=== PATIENT | male | born 1955 | race Caucasian/White ===

== ENCOUNTER → 2019-05-01 10:12 | Outpatient (REF) | payer OTHER, SELFPAY | LOC: ANHLAB 10:12 | PROVIDERS: PCP Family Medicine; Visit Provider Nurse Practitioner | DX: D49.2 Neoplasm of unspecified behavior of bone, soft tissue, and skin (principal); C44.41 Basal cell carcinoma of skin of scalp and neck | CPT/HCPCS: 88305 ==

== ENCOUNTER → 2019-06-25 07:14 | Outpatient (REF) | payer OTHER, SELFPAY | LOC: ANHLAB 07:14 | PROVIDERS: PCP Family Medicine; Visit Provider Nurse Practitioner | DX: C44.41 Basal cell carcinoma of skin of scalp and neck (principal) | CPT/HCPCS: 88305; 88331 ==

== ENCOUNTER → 2020-12-19 04:14 | Outpatient (CLI) | payer MEDICARE, OTHER, SELFPAY ==
[2020-12-19 17:24] LABS: SARS-CoV-2 RNA PCR Negative
== END ==
PROVIDERS: PCP Family Medicine; Visit Provider Internal Medicine Gastroenterology
DX: Z01.812 Encounter for preprocedural laboratory examination (principal); Z20.822 Contact with and (suspected) exposure to COVID-19
CPT/HCPCS: C9803; U0003; U0005

== ENCOUNTER 2020-12-22 01:54 | Day surgery (SDC) | payer MEDICARE, OTHER, SELFPAY ==
--- NOTE | 2020-12-19 15:58 | PM.HPGS ---
History of Present Illness History of Present Illness Consent: Risks, benefits, and alternatives have been discussed and questions answered. Patient agrees to proceed with procedure. Chief complaint: hx of colon polyps Narrative: Gaudencio Guthrie is a 65 year old male Referred for colon cancer screening Review of Systems Review of Systems: All systems reviewed & are unremarkable except as noted in HPI and below PMFSH Past Medical History Medical History ADHD (attention deficit hyperactivity disorder), inattentive type BMI 31.0-31.9,adult BPH without obstruction/lower urinary tract symptoms CAD (coronary artery disease) (10/07/19) stenting of the 1st obtuse marginal and 2nd obtuse marginal Degenerative cervical spinal stenosis DM type 2 with diabetic peripheral neuropathy Encounter for prostate cancer screening Skin neoplasm Suspicious nevus Surgical History Surgical History Hx of cholecystectomy Family History Family History Mother Diabetes mellitus Family history of arthritis Grandparent Diabetes mellitus, Onset Age: 97 Family history of cardiovascular disease, Onset Age: 6 Family history of arthritis Father Acute myocardial infarction Social History Social History Smoking packs per day: 3 Smoking cigarettes per day: 60.0 Years smoked: 7 Smoking pack-years: 21.00 Smoking status: Former smoker Tobacco type: cigarettes Smoking end date: 02/15/76 Alcohol intake: never Substance use: never Substance use type: does not use Living arrangements: with family Spiritual care concerns: No Meds Home Medications and Allergies Home Medications Medication Instructions Recorded Confirmed Type sildenafil (pulm.hypertension) 20 See Rx Instructions PO ONCE PRN 04/03/19 12/10/20 History mg tablet tablet aspirin 325 mg tablet 325 mg PO DAILY 12/17/19 12/10/20 History clopidogrel 75 mg tablet 75 mg PO DAILY 12/17/19 12/10/20 History spironolactone 50 mg tablet 25 mg PO DAILY #90 tablet 03/06/20 12/10/20 Rx duloxetine 60 mg capsule,delayed 60 mg PO DAILY #30 cap 05/29/20 12/10/20 Rx release allopurinol 100 mg tablet 100 mg PO BID #180 tablet 07/07/20 12/10/20 Rx metformin 500 mg tablet,extended 1,000 mg PO BID #360 tablet 08/19/20 12/10/20 Rx release 24 hr empagliflozin 25 mg tablet 25 mg PO DAILY #30 tablet 10/21/20 12/10/20 Rx ezetimibe 10 mg tablet 10 mg PO DAILY #90 tablet 10/21/20 12/10/20 Rx lisinopril 40 mg tablet 40 mg PO DAILY #90 tablet 10/21/20 12/10/20 Rx tamsulosin 0.4 mg capsule 0.4 mg PO DAILY #90 cap 10/21/20 12/10/20 Rx amlodipine 2.5 mg PO DAILY 12/10/20 12/10/20 History ginkgo biloba 400 mg PO DAILY 12/10/20 12/10/20 History multivitamin 1 tablet PO DAILY 12/10/20 12/10/20 History Allergies Allergy/AdvReac Type Severity Reaction Status Date / Time Iodinated Contrast Media AdvReac Syncopy Verified 12/22/20 08:45 Exam Resp: Auscultation: clear to auscultation bilaterally Cardio: Rate: regular rate Rhythm: regular rhythm GI: GI Palp: Yes Soft to palpation and No Tenderness to palpation present (GI) Assessment and Plan Assessment and plan (1) Colon cancer screening: Code(s): Z12.11 - Encounter for screening for malignant neoplasm of colon Status: Acute Assessment and Plan: Colonoscopy with possible biopsy or polypectomy or cautery or injection of substances.
[2020-12-22 08:46] VITALS: BP 153/97; PULSE 86; RESP 20; TEMP 36.4; O2SAT 97; BMI 29.4
--- NOTE | 2020-12-22 08:56 | WPDANESEPPF ---
Anes - Initial Pre Proc Eval Procedure: Operation Date: 12/22/20 09:30 Proposed Procedures p Screening Colonoscopy - Nolberto Allen MD Date/Time: 12/22/20 08:56 Surgeon: Nolberto Allen MD Pre Op Diagnosis: hx of colon polyps Patient Data Age: 65 Gender: M Height: 1.78 m Weight: 93 kg Last Vital Signs Temp 36.4 C 12/22/20 08:46 Pulse 86 12/22/20 08:46 Resp 20 12/22/20 08:46 BP 153/97 H 12/22/20 08:46 Pulse Ox 97 12/22/20 08:46 Allergies Allergy/AdvReac Type Severity Reaction Status Date / Time Iodinated Contrast Media AdvReac Syncopy Verified 12/22/20 08:45 Home Medications Medication Instructions Recorded Confirmed Type sildenafil (pulm.hypertension) 20 See Rx Instructions PO ONCE PRN 04/03/19 12/10/20 History mg tablet tablet aspirin 325 mg tablet 325 mg PO DAILY 12/17/19 12/10/20 History clopidogrel 75 mg tablet 75 mg PO DAILY 12/17/19 12/10/20 History spironolactone 50 mg tablet 25 mg PO DAILY #90 tablet 03/06/20 12/10/20 Rx duloxetine 60 mg capsule,delayed 60 mg PO DAILY #30 cap 05/29/20 12/10/20 Rx release allopurinol 100 mg tablet 100 mg PO BID #180 tablet 07/07/20 12/10/20 Rx metformin 500 mg tablet,extended 1,000 mg PO BID #360 tablet 08/19/20 12/10/20 Rx release 24 hr empagliflozin 25 mg tablet 25 mg PO DAILY #30 tablet 10/21/20 12/10/20 Rx ezetimibe 10 mg tablet 10 mg PO DAILY #90 tablet 10/21/20 12/10/20 Rx lisinopril 40 mg tablet 40 mg PO DAILY #90 tablet 10/21/20 12/10/20 Rx tamsulosin 0.4 mg capsule 0.4 mg PO DAILY #90 cap 10/21/20 12/10/20 Rx amlodipine 2.5 mg PO DAILY 12/10/20 12/10/20 History ginkgo biloba 400 mg PO DAILY 12/10/20 12/10/20 History multivitamin 1 tablet PO DAILY 12/10/20 12/10/20 History Patient hx anesthesia problems: none Family hx anesthesia problems: none Results Review: All pre-operative results and documents have been reviewed as part of the pre-operative evaluation. [facility] Past Medical History Medical History ADHD (attention deficit hyperactivity disorder), inattentive type BMI 31.0-31.9,adult BPH without obstruction/lower urinary tract symptoms CAD (coronary artery disease) (10/07/19) stenting of the 1st obtuse marginal and 2nd obtuse marginal Degenerative cervical spinal stenosis DM type 2 with diabetic peripheral neuropathy Encounter for prostate cancer screening Skin neoplasm Suspicious nevus Surgical History Surgical History Hx of cholecystectomy Family History Family History Mother Diabetes mellitus Family history of arthritis Grandparent Diabetes mellitus, Onset Age: 97 Family history of cardiovascular disease, Onset Age: 6 Family history of arthritis Father Acute myocardial infarction Social History Social History Smoking packs per day: 3 Smoking cigarettes per day: 60.0 Years smoked: 7 Smoking pack-years: 21.00 Smoking status: Former smoker Tobacco type: cigarettes Smoking end date: 02/15/76 Alcohol intake: never Substance use: never Substance use type: does not use Living arrangements: with family Spiritual care concerns: No Anes - Eval Final PreProcedure Day of Procedure 12/22/20 08:56 Patient weight: overweight Heart: regular rate and rhythm Lungs: clear to auscultation Airway: Mallampati scale class II Neurological: alert and oriented Last oral intake: >/= 8 hours ASA classification: III Emergent: no Anesthetic plan: proceed Anesthesia type and monitoring: general GIVS and standard monitoring Results Review: All pre-operative results and documents have been reviewed as part of the pre-operative evaluation. Informed Consent: The patient's anesthetic plan and its attendant risks and benefits were discussed with the patient/family/POA. Questions were s
[2020-12-22] MEDS: LACTATED RINGERS 1,000 ML 150 ML IV CONT (09:07)
[2020-12-22 09:21] LABS: Glucose Point of Care 163 mg/dl (65-105)
[2020-12-22 10:00] VITALS: BP 112/57; PULSE 85; RESP 17; O2SAT 96
[2020-12-22 10:10] VITALS: BP 123/71; PULSE 74; RESP 16; O2SAT 100
[2020-12-22 10:20] VITALS: BP 116/76; PULSE 71; RESP 16; O2SAT 100
== END 2020-12-22 10:30 | disposition home or self-care (01) ==
PROVIDERS: PCP Family Medicine; Visit Provider Internal Medicine Gastroenterology
PROC: 0DJD8ZZ Inspection of Lower Intestinal Tract, Via Natural or Artificial Opening Endoscopic (ICD-10-PCS; CPT 45378; principal; 2020-12-22 09:30)
DX: Z12.11 Encounter for screening for malignant neoplasm of colon (principal); Z79.82 Long term (current) use of aspirin; Z79.84 Long term (current) use of oral hypoglycemic drugs; F90.9 Attention-deficit hyperactivity disorder, unspecified type; I25.10 Atherosclerotic heart disease of native coronary artery without angina pectoris; N40.1 Benign prostatic hyperplasia with lower urinary tract symptoms; E11.42 Type 2 diabetes mellitus with diabetic polyneuropathy; Z90.49 Acquired absence of other specified parts of digestive tract; Z87.891 Personal history of nicotine dependence
CPT/HCPCS: G0121; 82948; J2704; J7120

== ENCOUNTER → 2024-12-17 09:57 | Outpatient (CLI) | payer MEDICARE, OTHER, SELFPAY ==
--- NOTE | ~2024-12-17 | XR_ITS ---
EXAMINATION: XR foot RT min 3V, 12/17/2024 10:16 COLLECTIONS ANALYST HISTORY: M79.671 - Pain in right foot COMPARISON: No comparisons available. Findings: No acute fracture or malalignment. Moderate degenerative changes first metatarsal-phalangeal joint Soft tissues unremarkable. Impression: No acute fracture or malalignment. Reviewed, dictated and finalized at location P. ECTIONS ANALYST Impression: No acute fracture or malalignment.
--- NOTE | ~2024-12-17 | XR_ITS ---
EXAMINATION: XR ankle RT min 3V, 12/17/2024 10:22 SKOOG OPERATOR HISTORY: M25.571 - Pain in right ankle and joints of right foot COMPARISON: No comparisons available. Findings: No acute fracture or malalignment. No significant degenerative changes. Soft tissues unremarkable. Impression: No acute fracture or malalignment. Reviewed, dictated and finalized at location P. G OPERATOR Impression: No acute fracture or malalignment.
--- OUTSIDE RECORDS SUMMARY | 2024-12-17 10:53 | XMS_ITS | Clinical Summary ---
Author Organization [facility] Medical Office Building [address] Address [address] [place] [address] Care Team Providers Care Chief Information Security Officer Name Role Phone Lul Ramos MD Primary Care Provider [phone] Nii Og MD Unavailable Allergies Active Allergy Reactions Criticality Noted Date Comments Iodinated Contrast Media Other (See comments) Low 04/29/2017 Makes him pass out/ as a child Qbpuijn-Bzw-Qfo Reductase Inhibitors Dizziness High 11/28/2020 Room spins Medications allopurinol (ZYLOPRIM) 100 mg tabletIndication s:prevention of acute gout attack Take 2 tablets (200 mg total) by mouth every morning Active metFORMIN (GLUCOPHAGE) 500 mg tabletIndication s:type 2 diabetes mellitus Take 2 tablets (1,000 mg total) by mouth 2 (two) times a day with meals Active tamsulosin (FLOMAX) 0.4 mg extended release capsuleIndicatio ns:benign prostatic hyperplasia with lower urinary tract sx Take 1 capsule (0.4 mg total) by mouth nightly Active Jardiance 25 mg tabletIndication s:type 2 diabetes mellitus Take 1 tablet (25 mg total) by mouth every morning 4 Active spironolactone (ALDACTONE) 25 mg tablet Take 0.5 tablets (12.5 mg total) by mouth Tuesday 4 Active lisinopriL (PRINIVIL,ZESTRI L) 30 mg tabletIndication s:hypertension Take 1 tablet (30 mg total) by mouth every morning 4 Active Repatha SureClick 140 mg/mL pen injectorIndicati ons:hypercholest erolemia Inject 1 mL (140 mg total) under the skin every 2 (two) weeks 08/23/2023 last dose 1 Active pregabalin (LYRICA) 75 mg capsuleIndicatio ns:neuropathy Take 1 capsule (75 mg total) by mouth 3 (three) times a day Active acetaminophen (TYLENOL) 500 mg tablet Take 2 tablets (1,000 mg total) by mouth every 6 (six) hours as needed for pain Active aspirin 81 mg enteric coated tabletIndication s:Myocardial Reinfarction Prevention Take 1 tablet (81 mg total) by mouth daily Active erythromycin (ILOTYCIN) ophthalmic ointment Apply to eyelid incisions [address] Only [address] ointment in the eyes if they are irritated. 3.5 g 3 4 Active Additional Information Patient not taking.Reported on 11/16/2023 Active Problems Problem Noted Date Diagnosed Date Ptosis of both eyelids 07/28/2023 Dermatochalasis of both upper eyelids 07/28/2023 Memory loss 11/22/2017 Gait disturbance 11/22/2017 Surgical History Surgery Date Site/Laterality Comments GALLBLADDER SURGERY 02/14/2003 - 02/14/20 04 CATARACT EXTRACTION 02/14/2022 - 02/14/20 23 Bilateral CORONARY STENT PLACEMENT 02/15/2020 - 02/14/20 21 x2 ESOPHAGOGASTRODUODENOSCOPY 05/06/19 23 N/A; ESOPHAGOGASTRODUODENOSCOPY (EGD) DIAGNOSTIC ESOPHAGOSCOPY / EGD 07/09/19 23 LIFT / REPAIR BROW PTOSIS FOREHEAD 09/06/19 24 Bilateral Medical History Medical History Date Comments HTN (hypertension) Kidney disease DM (diabetes mellitus) Sepsis (HCC) Coronary artery disease Stroke (HCC) 04/2017 Had sepsis, body down to 20% and it did damage brain some (stroke like) Family History Medical History Relation Name Comments Diabetes Brother Hypertension Brother Cataracts Father Glaucoma Father Heart attack Father early 40s Hypertension Father Macular degeneration Father Cataracts Mother Diabetes Mother Hypertension Mother Macular degeneration Mother Stroke Mother in her 80s Thyroid disease Neg Hx Relation Name Status Comments Brother Father Mother Social History Tobacco Use Types Packs/Day Years Used Date Smoking Tobacco: Never Passive Smoke Exposure: Never Smokeless Tobacco: Never Tobacco Cessation:Counseling Given: No Personal Safety Answer Date Recorded Have you ever been in or are you currently in a harmful physical or emotional relationship or is someone making you feel afraid or unsafe? 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 Gender Identity Not on file Sexual Orientation Not on file Last Filed Vital Signs Vital Sign Reading Time Taken Comments Blood Pressure 123/74 09/06/2023 11:10 AM CDT Pulse 67 09/06/2023 11:10 AM CDT Temperature 36.3 C (97.3 F) 09/06/2023 10:40 AM CDT Respiratory Rate 15 09/06/2023 11:10 AM CDT Oxygen Saturation 93% 09/06/2023 11:10 AM CDT Inhaled Oxygen Concentration - - Weight 93 kg (205 lb) 08/25/2023 11:15 AM CDT Height 177.8 cm (5' 10) 08/25/2023 11:15 AM CDT Body Mass Index 29.41 08/25/2023 11:15 AM CDT Plan of Treatment Health Maintenance Due Date Last Done Comments Colon Cancer Screening-Colonoscopy 1955 Depression Screening 1955 Hepatitis C Screening 1955 Prostate Cancer Screening-PSA 1955 DTaP/Tdap/Td Vaccine (1 - Tdap) 10/03/1966 Hepatitis B Screening 10/03/1973 Pneumococcal vaccine 65+ (1 of 1 - PCV) 10/03/2005 Zoster Vaccine (1 of 2) 10/03/2005 Abdominal Aortic Aneurysm (AAA) Screen 10/03/2020 Well Visit 65+ 10/03/2020 Fall Risk Assessment 09/05/2024 09/06/2023 Influenza Vaccine (#1) 2024 Insurance [facility] CHOICE PLUS MEDICARE [facility] MEDICARE [facility] Care Teams Chief Information Security Officer Relationship Specialty Start Date End Date Lul Ramos MD [address] [address] PCP - General Family Medicine 10/21/17 [place] [id number] [address] Cardiovascular Disease 07/18/23
--- OUTSIDE RECORDS SUMMARY | 2024-12-17 10:53 | XMS_ITS | Clinical Summary ---
Author Organization [facility] Confide Address [address] [place] [address] Care Team Providers Care Health Care Assistant Name Role Phone Lul Ramos MD Primary Care Provider [phone] Source Comments [facility],non-owned Affiliates and Associated Physician Practices is amultiple site organization consisting of ambulatory clinics and hospital sitesin [place], [place], [place] and [place]. This disclosure is being madepursuant to the Care Everywhere program and may not contain all information available regarding this patient. Last updated 17.[facility] Conf[facility] Allergies Active Allergy Reactions Criticality Noted Date Comments Contrast-Iodinated Agents Fo r Ct/Other Other Low 04/29/2017 Makes him pass out Hmg-Coa-R Inhibitors Unknown High 11/28/2020 Medications * Be aware that medications may not be up to date on this document. Alwaysverify current medications with the patient. tamsulosin (FLOMAX) 0.4 MG capsule Take 1 (one) capsule by mouth at bedtime 05/17/19 18 Active torsemide (DEMADEX) 5 MG tabletIndicati ons:Edema Take 1 tablet by mouth once daily Reasons: Edema 30 tablet 4 06/30/19 18 Active Additional Information Patient not taking.Reported on 11/30/2024 allopurinol (Zyloprim) 100 MG tablet Take 1 (one) tablet by mouth once daily Active amLODIPine (Norvasc) 5 MG tablet Take 1 (one) tablet by mouth once daily Active vitamin D3 (Cholecalcifer ol) 10 MCG (400 UNIT) capsule Active Cyanocobalamin 1000 MCG Take 1 (one) tablet by mouth once daily Active evolocumab (Repatha SureClick) 140 MG/ML auto-injector Inject subcutaneously every 14 days 12/16/19 21 Active lisinopril (Prinivil; Zestril) 10 MG tablet Take 1 (one) tablet by mouth once daily 12/26/19 22 Active metFORMIN (Glucophage) 500 MG tablet Take 1 (one) tablet by mouth 2 times daily Active Multiple Vitamins-Lipscomb als (Cerovite Senior) TABS 1 (one) tablet Ac tive spironolactone (Aldactone) 25 MG tablet Take by mouth once daily 12/26/19 22 Active clopidogrel (plaVIX) 75 MG tablet Take 1 (one) tablet by mouth once daily Active aspirin (Aspirin) 325 MG tablet Take 1 (one) tablet by mouth once daily Active pregabalin (Lyrica) 75 MG capsule Take 1 (one) capsule by mouth 3 times daily Active Jardiance 25 MG tablet Take 1 (one) tablet by mouth every morning 06/20/19 24 Active terbinafine (LamISIL) 250 MG tablet 09/19/19 25 Active ciprofloxacin (Cipro) 500 MG tablet Take 1 (one) tablet by mouth once daily for 2 doses Take one tablet the evening before your biopsy and take one tablet the morning of your biopsy 2 tablet 11/30/19 25 025 Active Problems Problem Noted Date Diagnosed Date History of hypertension 05/04/2022 History of diabetes mellitus 05/04/2022 Gastrointestinal hemorrhage with melena 05/05/19 23 Arteriosclerosis of coronary artery 10/29/2019 Gout 10/29/2019 Hyperlipidemia 10/29/2019 Generalized edema 06/29/2017 Essential hypertension, benign 06/29/2017 Acute systolic heart failure 04/30/2017 Type 2 diabetes mellitus with hyperglycemia 04/14 Resolved Problems Problem Noted Date Diagnosed Date Resolved Date Acute kidney injury 06/29/2017 05/05/19 23 Acute renal failure with tubular necrosis 04/30/2017 05/05/2022 Acute respiratory failure with hypoxia 04/30/2017 05/05/2022 Acute liver failure 04/27/2017 05/06/19 23 Encounters Date Type Department Care Team Description 12/10/2024 Results Follow-Up [facility] - Urology [address] [place] [address] Rd [address] [place] [address] Eden Jones LPN 12/07/2024 Telephone [facility]rology [address] [place] [address] Rd [address] [place] [address] Juan Portillo MD Results 11/30/2024 1:00 PM CDT Procedure visit [facility] [address] [place] [address] Rd [address] [place] [id number] Juan Portillo MD PSA elevation 11/30/2024 Travel 11/29/2024 Orders Only [facility]rology [address] [place] [address] [address] [place] [address] Eden Jones LPN 10/23/2024 1:19 PM CDT - 10/23/2024 11:59 PM CDT Hospital Encounter [facility] [address] [place] [address] Juan Portillo MD Discharge Disposition: Home or Self Care 09/28/2024 9:00 AM CDT Office Visit [facility] - Urology [address] [place] [address] [address] [place] [phone] Juan Portillo MD PSA elevation (Primary Dx) 09/28/2024 Travel from Last 3 Months Family History Medical History Relation Name Comments CAD (Coronary Artery Disease) Mother Relation Name Status Comments Brother Alive Father Alive Mother Social History Tobacco Use Types Packs/Day Years Used Date Smoking Tobacco: Former Smokeless Tobacco: Never Tobacco Cessation:Counseling Given: Not Answered Alcohol Use Standard Drinks/Week Comments Never 0 (1 standard drink = 0.6 oz pur e alcohol) AUDIT-C Answer Date Recorded Q1: How often do you have a drink containing alc ohol? Never 05/04/2022 Average Number of Drinks Not on file 023 Frequency of Binge Drinking Not on file 04/15 PHQ-2 Answer Date Recorded Patient Health Questionnaire-2 Score 0 09/28/2024 Sex and Gender Information Value Date Recorded Sex Assigned at Not on file Legal Sex Male 3:23 PM CDT Gender Identity Not on file Sexual Orientation Not on file Last Filed Vital Signs Vital Sign Reading Time Taken Comments Blood Pressure 159/85 11/30/2024 1:20 PM CDT Pulse 70 11/30/2024 1:20 PM CDT Temperature 36.1 C (97 F) 11/30/2024 1:20 PM CDT Respiratory Rate 16 11/30/2024 1:20 PM CDT Oxygen Saturation 96% 11/30/2024 1:20 PM CDT Inhaled Oxygen Concentration - - Weight 90.7 kg (200 lb) 11/30/2024 1:20 PM CDT Height 177.8 cm (5' 10) 11/30/2024 1:20 PM CDT Body Mass Index 28.7 11/30/2024 1:20 PM CDT Plan of Treatment Upcoming Encounters Date Type Department Care Team (Late st Contact Info) Description 03/15/2025 8:45 AM REPAIRER KILN CAR Office Visit [facility] - Urology [address] [place] [address] [address] [place] [phone] Juan Portillo MD [address] [place] [address] Health Maintenance Due Date Last Done Comments COLOGUARD (AGES 45-75) - COLON CA SCREENING 1955 COLON MONITORING 1955 COLONOSCOPY - COLON CA SCREENING 1955 CT COLONOGRAPHY - COLON CA SCREENING 1955 Colorectal Cancer Screening 1955 FIT - COLON CA SCREENING 1955 FLEX SIG - COLON CA SCREENING 1955 MEDICARE AWV 12 MONTHS 1955 HEPATITIS C SCREENING 09/29/1973 DTAP/TDAP/TD VACCINES (1 - Tdap) 10/03/1974 PNEUMOCOCCAL VACCINE 50+ (1 of 2 - PCV) 10/03/1974 DIABETES-STATIN 1995 ZOSTER VACCINE (1 of 2) 10/03/2005 Respiratory Syncytial Virus (RSV) Vaccine Pt: or over 60 yrs (1 - Risk 60-74 years 1-dose series) 2015 AAA SCREENING 10/03/2020 DIABETES RETINOPATHY SCREENING 05/04/2022 DIABETES-FOOT EXAM WITH MONOFILAMENT 05/04/2022 DIABETES-HGB A1C 11/05/2022 05/05/2022, 04/28/2017 DIABETES-SERUM CREATININE 05/06/20232022, 05/04/2022, 09/28/2017, Additional history exists DIABETES - URINE PROTEIN SCREENING 02/15/2024 COVID-19 VACCINE ( season) 2024 INFLUENZA VACCINE (#1) 2024 DEPRESSION SCREENING Completed 09/28/2024 HEPATITIS B VACCINE Aged Out No longe r eligible based on patient's age to complete this topic HIB VACCINE Aged Out No longer eligi ble based on patient's age to complete this topic HPV VACCINE Aged Out No longer eligi ble based on patient's age to complete this topic MENINGOCOCCAL (Group B) VACCINE SHARED DECISION-MAKING Aged Out No longer eligible based on patient's age to complete this topic MENINGOCOCCAL GROUPS A/C/Y/W VACCINE Aged Out No longer eligible based on patient's age to complete this topic Procedures Procedure Name Priority Date/Time Associated Diagnosis Comments PATHOLOGY TISSUE Routine 11/30/2024 2:10 PM CDT PSA elevation MRI PROSTATE W 3D WWO CONTRAST Routine 10/23/2024 3:13 PM CDT PSA elevation URINALYSIS AUTO - POINT OF CARE (AMB) [facility] Routine 09/28/2024 9:09 AM CDT PSA elevation COMPREHENSIVE METABOLIC PANEL Routine 05/05/2022 2:00 AM CDT Gastrointestinal hemorrhage with melena HEMOGLOBIN A1C Routine 05/05/2022 2:00 AM CDT History of diabetes mellitus from Last 3 Months or Most Recently Relevant to Health Maintenance Results * PATHOLOGY TISSUE (11/30/2024 2:10 PM CDT) Case Report Surgical Pathology Report Case: [id number] Authorizing Provider: Juan Portillo MD Collected: 11/30/2024 02:10 PM Ordering Location: [facility] - Received: 12/03/2024 08:56 AM Urology Pathologist: Norma Eric MD Specimens: A) - Prostate, Left Lateral [place], Biopsy, LLA B) - Prostate, Left Lateral Mid, Biopsy, LLM C) - Prostate, Left Lateral Base, Biopsy, LLB D) - Prostate, Left Mid [place], Biopsy, LMA E) - Prostate, Left Mid Mid, Biopsy, LMM F) - Prostate, Left Mid Base, Biopsy, LMB G) - Prostate, Right Mid [place], Biopsy, RMA H) - Prostate, Right Mid Mid, Biopsy, RMM I) - Prostate, Right Mid Base, Biopsy, RMB J) - Prostate, Right Lateral [place], Biopsy, RLA K) - Prostate, Right Lateral Mid, Biopsy, RLM L) - Prostate, Right Lateral Base, Biopsy, RLB M) - Prostate Biopsy, ADAM 12/05/2024 7:21 PM CDT [facility] Final Diagnosis Prostate, left lateral apex, biopsy (A): - Benign glands and stroma Prostate, left lateral mid, biopsy (B): - Atypical acinar proliferation Prostate, left lateral base, biopsy (C): - Benign glands and stroma Prostate, left mid apex, biopsy (D): - Benign glands and stroma Prostate, left mid mid, biopsy (E): - Benign glands and stroma Prostate, left mid base, biopsy (F): - Benign glands and stroma Prostate, right mid apex, biopsy (G): - Benign glands and stroma Prostate, right mid mid, biopsy (H): - Benign glands and stroma Prostate, right mid base, biopsy (I): - Benign glands and stroma Prostate, right lateral apex, biopsy (J): - Benign glands and stroma Prostate, right lateral mid, biopsy (K): - Benign glands and stroma Prostate, right lateral base, biopsy (L): - Benign glands and stroma Prostate, ADAM, biopsy (M): - Prostate adenocarcinoma, grade group 3 (Emily score 3+3) involving approximately 70% of biopsy tissue Comment: The tiny focus of atypical glands in specimen B is present in level 1 but not present in level 2 12/05/2024 7:21 PM CDT [facility] at 1921 CDT Microscopic Description and Comment Microscopic examination is performed and substantiates the above diagnosis. Immunostain for p63 performed on specimen B fails to confirm the presence of carcinoma. 12/05/2024 7:[address] [facility] Clinical History 68 year old male w/ elevated PSA. Mild elevation for several years, recent peak PSA of 10.2 in 08/2024. Has associated BPH, on tamsulosin, which he started after a sepsis episode many years prior (negative urine culture but was suspected urinary source), but he has no urinary symptoms at present. Denies family history of prostate cancer. 12/05/2024 7:21 PM [facility] Gross Description The requisition and specimen(s) are identified with the patient's name Gaudencio Guthrie. Received in formalin, specimen A, left lateral apex, consists of a 1.3 cm length x 0.1 cm diameter faye-white cylindrical core biopsy, submitted in toto in cassette A1. Received in formalin, specimen B, 'left lateral mid' consists of a 1.3 cm length x 0.1 cm diameter faye-white cylindrical core biopsy, submitted in toto in cassette B1. Received in formalin, specimen C, 'left lateral base' consists of a 1.1 cm length x 0.1 cm diameter faye-white cylindrical core biopsy, submitted in toto in cassette C1. Received in formalin, specimen D, 'left mid apex' consists of a 1.3 cm length x 0.1 cm diameter faye-white cylindrical core biopsy, submitted in toto in cassette B1. Received in formalin, specimen E, 'left mid mid' consists of a 1.2 cm length x 0.1 cm diameter faye-white cylindrical core biopsy, submitted in toto in cassette E1. Received in formalin, specimen F, 'left mid base' consists of a 1.4 cm length x 0.1 cm diameter faye-white cylindrical core biopsy, submitted in toto in cassette F1. Received in formalin, specimen G, 'right mid apex' consists of a 0.6 cm length x 0.1 cm diameter faye-white cylindrical core biopsy, submitted in toto in cassette G1. Received in formalin, specimen H, 'right mid mid' consists of a 1.0 cm length x 0.1 cm diameter faye-white cylindrical core biopsy, submitted in toto in cassette H1. Received in formalin, specimen I, 'right mid base' consists of a 2.0 cm length x 0.1 cm diameter faye-white cylindrical core biopsy, submitted in toto in cassette I1. Received in formalin, specimen J, 'right lateral apex' consists of a 1.1 cm length x 0.1 cm diameter faye-white cylindrical core biopsy, submitted in toto in cassette J1. Received in formalin, specimen K, 'right lateral mid' consists of a 1.3 cm length x 0.1 cm diameter faye-white cylindrical core biopsy, submitted in toto in cassette K1. Received in formalin, specimen L, 'right lateral base' consists of a 0.8 cm length x 0.1 cm diameter faye-white cylindrical core biopsy, submitted in toto in cassette L1. Received in formalin, specimen M, 'ADAM' consists of two faye-white cylindrical core biopsies averaging 1.1 cm in length x 0.1 cm in diameter, submitted in toto in cassette M1. 12/05/2024 7:21 PM CDT [facility] Pathologist Location at [facility] 12/05/2024 7:21 PM T [facility] Disclaimer The performance characteristics of all immunohistochemical and indirect immunofluorescence stains (if any) cited in this report were determined by the [facility] of [facility]. Some of these tests were developed by our own laboratory and have not been cleared or approved by the US Food and Drug Administration. The FDA does not require this test to go through premarket FDA review. These tests are used for clinical purposes. They should not be regarded as investigational or for research. This laboratory is certified under the Clinical Laboratory Improvement Amendments (CLIA) as qualified to perform high complexity clinical laboratory testing. This case has been personally reviewed and interpreted by the attending (teaching) pathologist. 12/05/2024 7:21 PM CDT [facility] Embedded Images 12/05/2024 7:21 PM CDT [facility] Pathology/Cytology BIOPSY OF PROSTATE / Unknown 11/30/2024 2:10 PM CDT 12/03/2024 8:56 AM CDT Miscellaneous samples (specimen) (Prostate, Left Lateral Mid, Biopsy) 11/30/2024 2:10 PM CDT 12/03/2024 8:56 AM CDT Miscellaneous samples (specimen) (Prostate, Left Lateral Base, Biopsy) 11/30/2024 2:10 PM CDT 12/03/2024 8:56 AM CDT Miscellaneous samples (specimen) (Prostate, Left Mid [place], Biopsy) 11/30/2024 2:10 PM CDT 12/03/2024 8:56 AM CDT Miscellaneous samples (specimen) (Prostate, Left Mid Mid, Biopsy) 11/30/2024 2:10 PM CDT 12/03/2024 8:56 AM CDT Miscellaneous samples (specimen) (Prostate, Left Mid Base, Biopsy) 11/30/2024 2:10 PM CDT 12/03/2024 8:56 AM CDT Miscellaneous samples (specimen) (Prostate, Right Mid [place], Biopsy) 11/30/2024 2:10 PM CDT 12/03/2024 8:56 AM CDT Miscellaneous samples (specimen) (Prostate, Right Mid Mid, Biopsy) 11/30/2024 2:10 PM CDT 12/03/2024 8:56 AM CDT Miscellaneous samples (specimen) (Prostate, Right Mid Base, Biopsy) 11/30/2024 2:10 PM CDT 12/03/2024 8:56 AM CDT Miscellaneous samples (specimen) (Prostate, Right Lateral [place], Biopsy) 11/30/2024 2:10 PM CDT 12/03/2024 8:56 AM CDT Miscellaneous samples (specimen) (Prostate, Right Lateral Mid, Biopsy) 11/30/2024 2:10 PM CDT 12/03/2024 8:56 AM CDT Miscellaneous samples (specimen) (Prostate, Right Lateral Base, Biopsy) 11/30/2024 2:10 PM CDT 12/03/2024 8:56 AM CDT Miscellaneous samples (specimen) BIOPSY OF PROSTATE / Unknown 11/30/2024 2:10 PM CDT 12/03/2024 8:56 AM CDT us Juan Portillo MD LAB - PATHOLOGY/CYTOLOGY O RDERABLES Final Result [facility] [address] [place] [address], [facility] [phone] * MRI Prostate W 3D Wwo Contrast (10/23/2024 3:13 PM CDT) Anatomical Region Laterality Modality Pelvis Magnetic Resonan ce 10/24/2024 2:34 PM CDT Impressions 10/26/2024 7:51 AM CDT IMPRESSION: Impression 1: A focal lesion in right anterior peripheral zone of the mid/lower prostate measures 1.5 cm in diameter. Overall PI RADS: Category 5 - Very high (clinically significant cancer is highly likely to be present). Recommendations:Focused biopsy of the suspicious lesion is recommended. Impression 2: Benign prostatic hyperplasia changes are noted. Other incidental findings: None The report was drafted by Low Urrutia MD (vice president global digital marketing) 10/24/2024 2:35 PM. > Dictated by Healthcare Corporate Account Director I, Laurence Vera MD have personally reviewed and interpreted this examination/study. > Interpreting Provider: Laurence Vera MD on 10/26/2024 7:51 AM Narrative 10/26/2024 7:51 AM CDT PROCEDURE: MRI PROSTATE W 3D WWO CONTRAST, DATE/TIME OF EXAM: 10/23/2024 3:14 PM, LOCATION [facility] INDICATION: R97.20: PSA elevation ADDITIONAL CLINICAL INFORMATION: Ordering Provider Reason For Exam: Technologist Note: Additional: PSA 4.0 (06/14/2023), PSA 5.6 (04/16/2024), PSA 10.2 (09/01/2024). COMPARISON: None. Technique: Multiplanar, multisequence imaging of the pelvis in accordance with PI-RADS recommendations before and after intravenous administration of 18 mL of MultiHance at 2 mL/s on a 3Tesla platform. A coronal HASTE of entire pelvis, dedicated 3 plane 20 cm FOV FSE T2, axial diffusion-weighted imaging with the b values 50, 400 and 1000 and ADC map, and calculated b = 1500 sec/mm2. Precontrast axial T1-weighted images of the pelvis followed by axial 3-D dynamic contrast-enhanced T1-weighted imaging with 10 seconds temporal resolution were acquired using 3 mm slice thickness. In addition a full pelvis post contrast T1-weighted axial and sagittal sequences were also obtained. Images were interpreted and measurements were made using the eCert software. FINDINGS: Size: 5.6 x 4.5 x 5.5 cm and approximate volume was 53.2 cc. Quality:Mild geometric distortion, predominantly in the diffusion-weighted imaging; however, does not compromise the diagnostic confidence. Hemorrhage:None. Peripheral zone: T2: Heterogeneous T2 signal intensity with ill-defined/wedge-shaped low signal intensity areas. No masslike focal lesions.. T2 Score: Score 5 (circumscribed, homogeneous moderate hypointense focus/mass confined to the prostate and >1.5 cm in greatest dimension). DWI: No abnormal diffusion restriction focus/lesion is seen. The DWI score: Score 5 (focal markedly hypointense on ADC and markedly hyperintense on high b-value DWI; >1.5 cm in the greatest dimension. DCE: Focal enhancement, and earlier than enhancement of adjacent normal prostatic tissues, and corresponds to suspicious finding on T2Wand/orDWI Transitional zone: T2: Score 2 (a mostly encapsulated nodule or a homogeneous circumscribed nodule without encapsulation or a homogeneous mildly hypointense area between nodules.. T2 Score: Score 2 (Linear or wedge-shaped hypointensity or diffuse mild hypointensity, non-mass like usually indistinct margin). DWI: No abnormal diffusion restriction focus/lesion is seen.. The DWI score: Score 2 (Linear/wedge-shaped hypointense on ADC and/or linear/wedge shaped hyperintense on high b- value DWI. DCE: No early enhancement; or diffuse multifocal enhancement NOT corresponding to a focal finding on T2W and/or DWI. Lesion #1 Location: Anterior part of right peripheral zone, mid-lower prostate. Size: 1.5 x 1.4 x 1.5 cm cm and approximate volume 1.22 cc. T2: Hypointense DWI: Diffusion restriction, ADC value is between 275-370. DCE: Yes Prostate margin:Intact. No suggestion of capsular invasion or periprostatic extension. Lesion overall PI RADS:5 Neurovascular bundle:None. Seminal vesicles:Unremarkable. Lymph nodes:No significantly enlarged pelvic lymph nodes. Bones:No focal bony lesions identified. Urinary bladder: Unremarkable. Other pelvic organs:Rectum and visualized bowel loops are unremarkable. Others:None Procedure Note Laurence Vera MD - 10/26/2024 PROCEDURE: MRI PROSTATE W 3D WWO CONTRAST, DATE/TIME OF EXAM: 10/23/2024 3:14 PM, LOCATION [facility] INDICATION: R97.20: PSA elevation ADDITIONAL CLINICAL INFORMATION: Ordering Provider Reason For Exam: Technologist Note: Additional: PSA 4.0 (06/14/2023), PSA 5.6 (04/16/2024), PSA 10.2(09/01/2024). COMPARISON: None. Technique: Multiplanar, multisequence imaging of the pelvis inaccordance with PI-RADS recommendations before and after intravenous administrationof 18 mL of MultiHance at 2 mL/s on a 3Tesla platform. A coronal HASTE of entire pelvis, dedicated 3 plane 20 cm FOV FSE T2, axialdiffusion-weighted imaging with the b values 50, 400 and 1000 and ADC map, and calculated b= 1500 sec/mm2. Precontrast axial T1-weighted images of the pelvisfollowed by axial 3-D dynamic contrast-enhanced T1-weighted imaging with 10seconds temporal resolution were acquired using 3 mm slice thickness. In additiona full pelvis post contrast T1-weighted axial and sagittal sequences were also obtained. Images were interpreted and measurements were made using the eCert software. FINDINGS: Size: 5.6 x 4.5 x 5.5 cm and approximate volume was 53.2 cc. Quality:Mild geometric distortion, predominantly in thediffusion-weighted imaging; however, does not compromise the diagnostic confidence. Hemorrhage:None. Peripheral zone: T2: Heterogeneous T2 signal intensity with ill-defined/wedge-shaped low signal intensity areas. No masslike focal lesions.. T2 Score: Score 5 (circumscribed, homogeneous moderate hypointense focus/mass confined tothe prostate and >1.5 cm in greatest dimension). DWI: No abnormal diffusion restriction focus/lesion is seen. The DWIscore: Score 5 (focal markedly hypointense on ADC and markedly hyperintense on high b-value DWI; >1.5 cm in the greatest dimension. DCE: Focal enhancement, and earlier than enhancement of adjacent normal prostatic tissues, and corresponds to suspicious finding on T2Wand/orDWI Transitional zone: T2: Score 2 (a mostly encapsulated nodule or a homogeneouscircumscribed nodule without encapsulation or a homogeneous mildly hypointense area between nodules.. T2 Score: Score 2 (Linear or wedge-shapedhypointensity or diffuse mild hypointensity, non-mass like usually indistinct margin). DWI: No abnormal diffusion restriction focus/lesion is seen.. The DWI score: Score 2 (Linear/wedge-shaped hypointense on ADC and/orlinear/wedge shaped hyperintense on high b- value DWI. DCE: No early enhancement; or diffuse multifocal enhancement NOT corresponding to a focal finding on T2W and/or DWI. Lesion #1 Location: Anterior part of right peripheral zone, mid-lower prostate. Size: 1.5 x 1.4 x 1.5 cm cm and approximate volume 1.22 cc. T2: Hypointense DWI: Diffusion restriction, ADC value is between 275-370. DCE: Yes Prostate margin:Intact. No suggestion of capsular invasion orperiprostatic extension. Lesion overall PI RADS:5 Neurovascular bundle:None. Seminal vesicles:Unremarkable. Lymph nodes:No significantly enlarged pelvic lymph nodes. Bones:No focal bony lesions identified. Urinary bladder: Unremarkable. Other pelvic organs:Rectum and visualized bowel loops are unremarkable. Others:None IMPRESSION: Impression 1: A focal lesion in right anterior peripheral zone of the mid/lower prostate measures 1.5 cm in diameter. Overall PI RADS: Category 5 - Very high (clinically significant canceris highly likely to be present). Recommendations:Focused biopsy of the suspicious lesion is recommended. Impression 2: Benign prostatic hyperplasia changes are noted. Other incidental findings: None The report was drafted by Low Urrutia MD (vice president global digital marketing) 10/24/2024 2:35 PM. > Dictated by Healthcare Corporate Account Director I, Laurence Vera MD have personally reviewed and interpreted this examination/study. > Interpreting Provider: Laurence Vera MD on 57:51 AM us Juan Portillo MD MR ORDERABLES Final Resu lt * URINALYSIS AUTO - POINT OF CARE (AMB) [facility] (09/28/2024 9:09 AM CDT) Glucose UA 3+ [address] [facility] [address] Bilirubin UA POCT NEG [facility] [address] Ketones UA POCT NEG [facility] [address] Specific [place] UA 1.[address] [facility] [address] Blood Urine POCT NEG [facility] [address] pH UA 6.0 [facility] [address] Protein UA NEG [facility] [address] Urobilinogen UA - 0.2 [facility] [address] Nitrite UA NEG [facility] [address] WBC UA NEG [facility] [address] Urine URINE / Unknown 09/28/2024 9 :09 AM CDT Juan Portillo MD LAB - POINT OF CARE ORDERA BLES Final Result [facility] [address] [place] [address], [place] [phone] * (ABNORMAL) HEMOGLOBIN A1C (05/05/2022 2:00 AM CDT) Hemoglobin A1c 6.6(H) <=5.6 % 05/05/2022 9:54 AM CDT [facility] Estimated Average Glucose 143 mg/dL 05/05/2022 9:54 AM CDT [facility] Comment: HbA1c Interpretation: Normal : < 5.7% Pre-diabetes: 5.7-6.4% Diabetes: Equal to or greater than 6.5% Test results diagnostic of diabetes should be repeated for confirmation. Treatment target values recommended by ADA and other clinical organizations should be used to evaluate metabolic control in patients. Reference: [place] Diabetes Association, Standards of Care in Diabetes -2020 In patients 70 years and older consider HbA1c target range of 7.0-7.5% (Reference: Maynor Carrera, et al. JAMDA. 2012) The Sebia assay for the measurement of HbA1c is a National Glycohemoglobin Standardization Program (NGSP) certified method. Blood BLOOD SPECIMEN / Unknown Venipuncture / Unknown 05/05/2022 2:00 AM CDT 05/05/2022 2:04 AM CDT us Taye [facility] LAB - CHEMISTRY ORDERABLES Final Result [facility] [address] [place] [address], [place] [phone] * (ABNORMAL) COMPREHENSIVE METABOLIC PANEL (05/05/2022 2:00 AM [facility]) BUN 18 7 - 26 mg/dL 05/05/2022 2:29 AM [facility] Creatinine 0.84 0.71 - 1.16 mg/dL 05/05/2022 2:29 AM [facility] Sodium 137 136 - 145 mmol/L 05/05/2022 2:29 AM [facility] Potassium 4.0 3.5 - 4.5 mmol/L 05/05/2022 2:29 AM [facility] Chloride 105 98 - 107 mmol/L 05/05/2022 2:29 AM [facility] CO2 25 22 - 29 mmol/L 05/05/2022 2:29 AM [facility] Glucose 111 70 - 115 mg/dL 05/05/2022 2:29 AM [facility] Calcium 9.2 8.4 - 10.2 mg/dL 05/05/2022 2:29 AM [facility] Protein Total 6.1 6.0 - 8.3 g/dL 05/05/2022 2:29 AM [facility] Albumin 4.0 3.4 - 5.0 g/dL 05/05/2022 2:29 AM [facility] Bilirubin Total 0.5 0.2 - 1.2 mg/dL 05/05/2022 2:29 AM [facility] Alkaline Phosphatase 34(L) 40 - 150 U/L 05/05/2022 2:29 AM [facility] ALT 14 5 - 55 U/L 05/05/2022 2:29 AM [facility] AST 13 5 - 34 U/L 05/05/2022 2:29 AM [facility] Anion Gap 11 8 - 18 05/05/2022 2:29 AM [facility] BUN/Creatinine Ratio 21 7 - 23 05/05/2022 2:29 AM [facility] Osmolality Calculated 287 270 - 300 mOsm/kg 05/05/2022 2:29 AM [facility] Albumin/Globulin Ratio 1.9 1.1 - 2.3 05/05/2022 2:29 AM [facility] eGFR by CKD-EPI >90 >=90 mL/min/1.7 3 m2 05/05/2022 2:29 AM CDT [facility] Blood BLOOD SPECIMEN / Unknown Venipuncture / Unknown 05/05/2022 2:00 AM CDT 05/05/2022 2:04 AM CDT Tyae [facility] - CHEMISTRY ORDERABLES Final Result [facility] [address] [place] [address], [facility] [phone] from Last 3 Months or Most Recently Relevant to Health Maintenance Insurance MEDICARE [facility] [place] Advance Directives * Full Code (Latest Code Status on File) Date Activated Date Inactivated Comments 05/04/2022 8:22 PM 05/05/2022 7:45 PM Care Teams Health Care Assistant Relationship Specialty Start Date End Date Lul Ramos MD PCP - General 09/09/17
--- OUTSIDE RECORDS SUMMARY | 2024-12-17 10:53 | XMS_ITS | Encounter Summary ---
Author Organization [facility] Address [address] [address] Care Team Providers Care Concaving Machine Operator Name Role Phone Lul Ramos MD Primary Care Provider [phone] Encounter Details Date Type Department Care Team (Late st Contact Info) Description 12/10/2024 Results Follow-Up [facility] - Urology [address] [place] [address] [address] [place] [address] Eden Jones LPN Social History Tobacco Use Types Packs/Day Years Used Date Smoking Tobacco: Former Smokeless Tobacco: Never Alcohol Use Standard Drinks/Week Comments Never 0 [...] on file Sexual Orientation Not on file documented as of this encounter Functional Status * Is person deaf or have serious hearing difficulty? Answer Date of Assessment Author No 07/08/2022 10:46 AM CDT Nithya Cox RN * Is person blind or have serious difficulty seeing? Answer Date of Assessment Author No 07/08/2022 10:46 AM Nithya William RN * Does person have serious difficulty walking/climbing stairs? Answer Date of Assessment Author No 07/08/2022 10:46 AM Nithya William RN * Does person have difficulty dressing/bathing? Answer Date of Assessment Author No 07/08/2022 10:46 AM Nithya William RN * Does person have difficulty doing errands alone? Answer Date of Assessment Author No 07/08/2022 10:46 AM Nithya William RN documented as of this encounter Mental Status * Does person have difficulty concentrating/remembering/making decisions? Answer Entry Date Author No 07/08/2022 10:46 AM Nithya William RN documented in this encounter Plan of Treatment Upcoming Encounters Date Type Department Care Team (Late st Contact Info) Description 03/15/2025 8:45 AM SOLAR SYSTEMS DESIGNER Office Visit [facility] - Urology [address] [place] [address] [address] [place] [address] Juan Portillo MD [address] [place] [address] documented as of this encounter Visit Diagnoses Not on filedocumented in this encounter Care Teams Concaving Machine Operator Relationship Specialty Start Date End Date Lul Ramos MD PCP - General 09/09/17 documented as of this encounter
== END ==
LOC: EXPTRAD 10:00
PROVIDERS: PCP Family Medicine; Visit Provider Family Medicine
DX: M79.671 Pain in right foot (principal); M25.571 Pain in right ankle and joints of right foot; G89.29 Other chronic pain
CPT/HCPCS: 73610; 73630

== ENCOUNTER 2025-01-09 14:36 | Outpatient (CLI) | payer MEDICARE, OTHER, SELFPAY ==
--- NOTE | ~2025-01-09 | US_ITS ---
EXAMINATION: US carotid duplex BI DATE: 01/09/2025 15:21 INDICATION: Abnormal gait and mobility TECHNIQUE: Grayscale, color Doppler, and pulsed Doppler images of the cervical carotid arteries were obtained. The degree of vessel stenosis is placed in one of the following categories: normal, <50%, 50-69%, >=70% but less than near- occlusion, near-occlusion, or total occlusion. Note that percent stenosis relative to normal distal artery lumen diameter is indirectly measured from velocity measurements as described by Anders, et al. Radiology 2003; 229:340-346. Notes: Normal: Peak systolic velocity <125 centimeters/sec and no plaque <50%. Peak systolic velocity <125 (EDV <40; ICA/CCA PSV ratio <2.0; used these factors only a tandem lesions or low cardiac output or contralateral disease) 50-69 %: PSV 125-230 (EDV 40-100; ratio 2-4) >= 70% but less than near occlusion: PSV greater than 230 (EDV > 100; ratio> 4.0) Near Occlusion: PSV that is variable; markedly narrowed lumen Occlusion: Absent flow on color/spectral Doppler and no lumen on perez scale. COMPARISON: None. FINDINGS: RIGHT: The right common carotid artery (CCA) peak systolic velocity (PSV) is 63 cm/s. The right internal carotid artery (ICA) PSV is 58 cm/s. The right ICA end- diastolic velocity (EDV) is 15 cm/s. The right ICA/CCA PSV ratio is 0.9. The external carotid artery (ECA) PSV is 97 cm/s. There is antegrade flow in the right vertebral artery. LEFT: The left CCA PSV is 75 cm/s. The left ICA PSV is 64 cm/s. The left ICA EDV is 13 cm/s. The left ICA/CCA PSV ratio is 0.9. The ECA PSV is 88 cm/s. There is antegrade flow in the left vertebral artery. IMPRESSION: 1. Less than 50% stenosis in the right internal carotid artery by sonographic criteria. 2. Less than 50% stenosis in the left internal carotid artery by sonographic criteria. Reviewed, dictated and finalized at location O. TOMETER OPERATOR IMPRESSION: 1. Less than 50% stenosis in the right internal carotid artery by sonographic domo esteban. 2. Less than 50% stenosis in the left internal carotid artery by sonographic mikayla madison.
== END 2025-01-09 14:37 | disposition home or self-care (01) ==
PROVIDERS: PCP Family Medicine; Visit Provider Family Medicine
DX: I65.23 Occlusion and stenosis of bilateral carotid arteries (principal); R26.89 Other abnormalities of gait and mobility
CPT/HCPCS: 93880

== ENCOUNTER 2025-02-08 09:46 | Outpatient (CLI) | payer MEDICARE, OTHER, SELFPAY ==
--- NOTE | ~2025-02-08 | MR_ITS ---
EXAMINATION: MR brain/brain stem wo/w con DATE: 02/08/2025 10:46 INDICATION: Transient distortion of vision and ataxia. TECHNIQUE: Magnetic resonance imaging (MRI) of the brain and brainstem was performed without and with 19 mL MultiHance intravenous contrast. COMPARISON: None. FINDINGS: There are scattered areas of nonspecific increased T2-weighted signal intensity in the cerebral white matter. There is no intracranial hemorrhage, acute infarction, or abnormal intracranial mass lesion. The ventricles are normal in size. There is mild mucosal thickening in the paranasal sinuses. There are likely changes of ocular lens replacement surgeries. The mastoid air cells are normal. IMPRESSION: 1. Moderate nonspecific cerebral white matter disease, which likely represents chronic small vessel ischemic disease. Reviewed, dictated and finalized at location [facility]
--- OUTSIDE RECORDS SUMMARY | 2025-02-08 09:51 | XMS_ITS | Encounter Summary ---
Author Organization [facility] Address [address] [place] [address] Care Team Providers Care Conductor Road Freight Name Role Phone Lul Ramos MD Primary Care Provider [phone] Encounter Details Date Type Department Care Team (Late st Contact Info) Description 12/10/2024 Results Follow-Up [facility] - Urology [address] [place] [address] [address] [place] [address] Eden Jones LPN Social History Tobacco Use [...] of Assessment Author No 07/08/2022 10:46 AM ERICKAT Nithya Cox RN * Is person blind [...] Care Team (Late st Contact Info) Description 02/20/2025 10:00 AM SENIOR TELECOMMUNICATIONS ENGINEER Appointment [facility] [address] [place] [address] Carrol Dillard, HEAD BOYS [employer] COACH-QUALITY CONTROL COORDINATOR [address] [facility] [place] [address] 03/15/2025 8:45 AM SENIOR TELECOMMUNICATIONS ENGINEER Office Visit [facility] - Urology [address] [facility] [address] [place] [address] Juan Portillo MD [address] [facility] 2L [place] [address] documented as of this encounter Visit Diagnoses Not on filedocumented in this encounter Care Teams Conductor Road Freight Relationship Specialty Start Date End Date Lul Ramos MD PCP - General 09/09/17 documented as of this encounter
--- OUTSIDE RECORDS SUMMARY | 2025-02-08 09:51 | XMS_ITS | Clinical Summary ---
Author Organization [facility] Address [address] [place] [address] Care Team Providers Care Assistant Customer Service Manager Name Role Phone Lul Ramos MD Primary Care Provider [phone] Source Comments [facility],non-owned Affiliates and Associated Physician Practices is amultiple site organization consisting of ambulatory clinics and hospital sitesin [place], [place], [place] and [place]. This disclosure is being madepursuant to the Care Everywhere program and may not contain all information available regarding this patient. Last updated 17.[facility] Allergies Active Allergy Reactions Criticality Noted Date [...] by mouth 2 times daily Active Multiple Vitamins-[place] als (Cerovite Senior) TABS 1 (one) tablet [...] (LamISIL) 250 MG tablet 09/19/19 25 Active levoFLOXacin (Levaquin) 500 MG tablet Take 1 (one) tablet by mouth once daily for 10 days 10 tablet 01/18/20 25 025 Active Problems Problem Noted Date [...] Encounters Date Type Department Care Team Description 01/17/2025 1:45 PM UI APPLICATION DEVELOPER Office Visit [facility] - Urology [address] [place] [address] [address] [place] [address] Carrol Dillard, ENGINEERING RECRUITER-EXECUTIVE DIRECTOR Left testicular pain (Primary Dx) 01/17/2025 Travel 12/10/2024 Results Follow-Up [facility] - Urology [address] [place] [address] Eden Jones LPN 12/07/2024 Telephone [facility] Urology [address] [place] [address] [address] [place] [address] Juan Portillo MD Results 11/30/2024 1:00 PM CDT Procedure visit [facility] - Urology [address] [place] [address] [address] [place] [address] Juan Portillo MD PSA elevation 11/30/2024 Travel 11/29/2024 Orders Only [facility] Urology [address] [place] [address] [address] [place] [address] Eedn Jones LPN from Last 3 Months Family History Medical [...] Sign Reading Time Taken Comments Blood Pressure 119/75 01/17/2025 1:36 PM UI APPLICATION DEVELOPER Pulse 88 01/17/2025 1:36 PM UI APPLICATION DEVELOPER Temperature 36.6 C (97.9 F) 01/17/2025 1:36 PM UI APPLICATION DEVELOPER Respiratory Rate 16 01/17/2025 1:36 PM UI APPLICATION DEVELOPER Oxygen Saturation 95% 01/17/2025 1:36 PM UI APPLICATION DEVELOPER Inhaled Oxygen Concentration - - Weight 91.3 kg (201 lb 3.2 oz) 01/17/2025 1:36 P M UI APPLICATION DEVELOPER Height 177.8 cm (5' 10) 01/17/2025 1:36 PM UI APPLICATION DEVELOPER Body Mass Index 28.87 01/17/2025 1:36 PM UI APPLICATION DEVELOPER Plan of Treatment Upcoming Encounters Date Type Department Care Team (Late st Contact Info) Description 02/20/2025 10:00 AM UI APPLICATION DEVELOPER Appointment [facility] [address] [place] [address] Carrol Dillard, ENGINEERING RECRUITER-EXECUTIVE DIRECTOR [address] [place] [address] DEPT [place] [address] 03/15/2025 8:45 AM UI APPLICATION DEVELOPER Office Visit [facility] Urology [address] [place] [address] [address] [place] [address] Juan Portillo MD [address] [facility] 2L DIV [place] [address] Health Maintenance Due Date Last Done Comments [...] 50+ (1 of 2 - PCV) 10/03/1974 Respiratory Syncytial Virus (RSV) Vaccine Pt: or over 60 yrs (1 - Risk 50-74 years 1-dose series) 10/03/2005 ZOSTER VACCINE (1 of 2) 10/03/2005 AAA SCREENING 10/03/2020 DIABETES RETINOPATHY SCREENING 05/04/2022 [...] Procedure Name Priority Date/Time Associated Diagnosis Comments URINALYSIS AUTO - POINT OF CARE (AMB) [facility] Routine 01/17/2025 2:49 PM UI APPLICATION DEVELOPER Left testicular pain PATHOLOGY TISSUE Routine 11/30/2024 2:10 PM CDT PSA elevation COMPREHENSIVE METABOLIC PANEL Routine 05/05/2022 2:00 AM CDT Gastrointestinal hemorrhage with melena HEMOGLOBIN A1C Routine 05/05/2022 2:00 AM CDT History of diabetes mellitus from Last 3 Months or Most Recently Relevant to Health Maintenance Results * (ABNORMAL) URINALYSIS AUTO - POINT OF CARE (AMB) [facility] (01/17/2025 2:49 PM UI APPLICATION DEVELOPER) Glucose UA 3+ [facility] [address] Bilirubin UA POCT - [facility] [address] Ketones UA POCT - [facility] [address] Specific [place] UA 1.[address] [facility] [address] Blood Urine POCT - [facility] [address] pH UA 5.5 [facility] [address] Protein UA - [facility] [address] Urobilinogen UA 3.5 [facility] [address] Nitrite UA - [facility] [address] WBC UA - [facility] [address] Urine URINE / Unknown 01/17/2025 2 :49 PM UI APPLICATION DEVELOPER us Carrol Dillard ENGINEERING RECRUITER-EXECUTIVE DIRECTOR LAB - POINT OF CARE ORD ERABLES Final Result [facility] [address] [place] [address], [facility] [phone] * PATHOLOGY TISSUE (11/30/2024 2:10 PM CDT) Case Report Surgical Pathology Report Case: [id number] Authorizing Provider: Juan Portillo MD Collected: 11/30/2024 02:10 PM Ordering Location: [facility] - Received: 12/03/2024 08:56 AM Urology Pathologist: Norma Eric MD Specimens: A) - Prostate, Left Lateral [place], Biopsy, LLA B) - Prostate, Left Lateral Mid, Biopsy, LLM C) - Prostate, Left Lateral Base, Biopsy, LLB D) - Prostate, Left Mid [place], Biopsy, LMA E) - Prostate, Left Mid Mid, Biopsy, LMM F) - Prostate, Left Mid Base, Biopsy, LMB G) - Prostate, Right Mid [place], Biopsy, RMA H) - Prostate, Right Mid Mid, Biopsy, RMM I) - Prostate, Right Mid Base, Biopsy, RMB J) - Prostate, Right Lateral [place], Biopsy, RLA K) - Prostate, Right Lateral Mid, Biopsy, RLM L) - Prostate, Right Lateral Base, Biopsy, RLB M) - Prostate Biopsy, ADAM 12/05/2024 7:21 PM CDT [facility] Final Diagnosis Prostate, left lateral [...] present in level 2 12/05/2024 7:21 PM [facility] at 1921 CDT Microscopic Description and Comment Microscopic examination is performed and substantiates the above diagnosis. Immunostain for p63 performed on specimen B fails to confirm the presence of carcinoma. 12/05/2024 7:21 PM [facility] Clinical History 68 year old male w/ elevated PSA. Mild elevation for several years, recent peak PSA of 10.2 in 08/2024. Has associated BPH, on tamsulosin, which he started after a sepsis episode many years prior (negative urine culture but was suspected urinary source), but he has no urinary symptoms at present. Denies family history of prostate cancer. 12/05/2024 7:21 PM [facility] Gross Description The requisition [...] toto in cassette M1. 12/05/2024 7:21 PM [facility] Pathologist Location at [facility] 12/05/2024 7:21 PM [facility] Disclaimer The performance characteristics of all immunohistochemical and indirect immunofluorescence stains (if any) cited in this report were determined by the Histopathology Laboratory of [facility]. Some of these tests were [...] attending (teaching) pathologist. 12/05/2024 7:21 PM CDT [facility] Embedded Images 12/05/2024 7:21 PM CDT [facility] Pathology/Cytology BIOPSY OF PROSTATE / Unknown 11/30/2024 2:10 PM CDT 12/03/2024 8:56 AM CDT Miscellaneous samples (specimen) (Prostate, Left Lateral Mid, Biopsy) 11/30/2024 2:10 PM CDT 12/03/2024 8:56 AM CDT Miscellaneous samples (specimen) (Prostate, Left Lateral Base, Biopsy) 11/30/2024 2:10 PM CDT 12/03/2024 8:56 AM CDT Miscellaneous samples (specimen) (Prostate, Left Mid [place], Biopsy) 11/30/2024 2:10 PM CDT 12/03/2024 8:56 AM CDT Miscellaneous samples (specimen) (Prostate, Left Mid Mid, Biopsy) 11/30/2024 2:10 PM CDT 12/03/2024 8:56 AM CDT Miscellaneous samples (specimen) (Prostate, Left Mid Base, Biopsy) 11/30/2024 2:10 PM CDT 12/03/2024 8:56 AM CDT Miscellaneous samples (specimen) (Prostate, Right Mid [place], Biopsy) 11/30/2024 2:10 PM CDT 12/03/2024 8:56 AM CDT Miscellaneous samples (specimen) (Prostate, Right Mid Mid, Biopsy) 11/30/2024 2:10 PM CDT 12/03/2024 8:56 AM CDT Miscellaneous samples (specimen) (Prostate, Right Mid Base, Biopsy) 11/30/2024 2:10 PM CDT 12/03/2024 8:56 AM CDT Miscellaneous samples (specimen) (Prostate, Right Lateral [place], Biopsy) 11/30/2024 2:10 PM CDT 12/03/2024 8:56 AM CDT Miscellaneous samples (specimen) (Prostate, Right Lateral Mid, Biopsy) 11/30/2024 2:10 PM CDT 12/03/2024 8:56 AM CDT Miscellaneous samples (specimen) (Prostate, Right Lateral Base, Biopsy) 11/30/2024 2:10 PM CDT 12/03/2024 8:56 AM CDT Miscellaneous samples (specimen) BIOPSY OF PROSTATE / Unknown 11/30/2024 2:10 PM CDT 12/03/2024 8:56 AM CDT Juan Portillo MD LAB - PATHOLOGY/CYTOLOGY O RDERABLES Final Result Performing Organization Address City/State/[facility] Co de Phone Number [facility] [address] [facility] [place], [place] [address] [place] [address] * (ABNORMAL) HEMOGLOBIN A1C (05/05/2022 2:00 AM CDT) Hemoglobin A1c 6.6(H) <=5.6 % 05/05/2022 9:54 AM CDT [facility] Estimated Average Glucose 143 mg/dL 05/05/2022 9:54 AM T [facility] Comment: HbA1c Interpretation: Normal : < 5.7% Pre-diabetes: 5.7-6.4% Diabetes: Equal to or greater than 6.5% Test results diagnostic of diabetes should be repeated for confirmation. Treatment target values recommended by ADA and other clinical organizations should be used to evaluate metabolic control in patients. Reference: [place] Diabetes Association, Standards of Care in Diabetes [...] [facility] - CHEMISTRY ORDERABLES Final Result [facility] [address] [place] [address], [facility] [phone] * (ABNORMAL) COMPREHENSIVE METABOLIC PANEL (05/05/2022 2:00 AM [facility]) BUN 18 7 - 26 mg/dL 05/05/2022 2:29 AM [facility] Creatinine 0.84 0.71 - 1.16 mg/dL 05/05/2022 2:29 AM [facility] Sodium 137 136 - 145 mmol/L 05/05/2022 2:29 AM [facility] Potassium 4.0 3.5 - 4.5 mmol/L 05/05/2022 2:29 AM [facility] Chloride 105 98 - 107 mmol/L 05/05/2022 2:29 AM [facility] CO2 25 22 - 29 mmol/L 05/05/2022 2:29 AM [facility] Glucose 111 70 - 115 mg/dL 05/05/2022 2:29 AM [facility] Calcium 9.2 8.4 - 10.2 mg/dL 05/05/2022 2:29 AM [facility] Protein Total 6.1 6.0 - 8.3 g/dL 05/05/2022 2:29 AM [facility] Albumin 4.0 3.4 - 5.0 g/dL 05/05/2022 2:29 AM [facility] Bilirubin Total 0.5 0.2 - 1.2 mg/dL 05/05/2022 2:29 AM [facility] Alkaline Phosphatase 34(L) 40 - 150 U/L 05/05/2022 2:29 AM [facility] ALT 14 5 - 55 U/L 05/05/2022 2:29 AM [facility] AST 13 5 - 34 U/L 05/05/2022 2:29 AM [facility] Anion Gap 11 8 - 18 05/05/2022 2:29 AM [facility] BUN/Creatinine Ratio 21 7 - 23 05/05/2022 2:29 AM [facility] Osmolality Calculated 287 270 - 300 mOsm/kg 05/05/2022 2:29 AM CDT [facility] Albumin/Globulin Ratio 1.9 1.1 - 2.3 05/05/2022 2:29 AM CDT [facility] eGFR by CKD-EPI >90 >=90 mL/min/1.7 3 m2 05/05/2022 2:29 AM CDT [facility] Blood BLOOD SPECIMEN / Unknown Venipuncture / Unknown 05/05/2022 2:00 AM CDT 05/05/2022 2:04 AM CDT Taye [facility] LAB - CHEMISTRY ORDERABLES Final Result Performing Organization Address City/State/[facility] Co de Phone Number [facility] [address] [place] [address], [facility] [phone] from Last 3 Months or Most Recently Relevant to Health Maintenance Insurance MEDICARE [facility] [place] Advance Directives * Full Code (Latest Code Status on File) Date Activated Date Inactivated Comments 05/04/2022 8:22 PM 05/05/2022 7:45 PM Care Teams Assistant Customer Service Manager Relationship Specialty Start Date End Date Lul Ramos MD PCP - General 09/09/17
--- OUTSIDE RECORDS SUMMARY | 2025-02-08 09:51 | XMS_ITS | Clinical Summary ---
Author Organization [facility] Address [address] [place] [address] Care Team Providers Care Edger Tailer Name Role Phone Lul Ramos MD Primary Care Provider [phone] Nii Og MD Unavailable Allergies Active Allergy Reactions Criticality Noted Date Comments Iodinated Contrast Media Other (See comments) Low 04/29/2017 Makes him pass out/ as a child Ozftogp-Kst-Vsk Reductase Inhibitors Dizziness High 11/28/2020 Room spins [...] on file Legal Sex Male 5:30 PM PALLIATIVE SENIOR NP Gender Identity Not on file Sexual Orientation [...] 09/05/2024 09/06/2023 Influenza Vaccine (#1) 2024 Insurance [facility] CHOICE PLUS [facility] HMO/PPO Address: [address] [address] [place] [address] MEDICARE [facility] MEDICARE [facility] Care Teams Edger Tailer Relationship Specialty Start Date End Date Lul Ramos MD [address] [address] PCP - General Family Medicine 10/21/17 [place] [id number] [address] Cardiovascular Disease 07/18/23
--- OUTSIDE RECORDS SUMMARY | 2025-02-08 09:51 | XMS_ITS | Patient Health Record ---
Author Organization [facility] , Address [address] [place] [address] Care Team Providers Care Bb Shot Packer Name Role Phone Lul Ramos MD Primary Care Provider Gabe Adame Unavailable [phone] Allergies Allergen (clinical drug ingredient) Drug/Non Drug Allergy documented on EMR Reaction Allergy Type Onset Date Status contrast dye (uncoded) Unknown Allergy Active Reason For Referral No Information Medications Medication SIG (Take, Route, Fr equency, Duration) Notes Start Date End Date Status Spironolactone Activ e amLODIPine Besylate Active Lisinopril Active metFORMIN HCl Active Allopurinol Active Clopidogrel Bisulfate Active Vitamin B12 Active Naproxen Active Vitamin D3 Active Social History Section Notes: . 3 children. Denies alcohol or tobacco use. Denies drug or chemical addiction. He is the President of [employer]. Plan Of Treatment No Information Insurance Providers Payer Name Payer Address Payer Phone Subscriber Number Group Number Insured Name Patient Relationship to Insured Coverage Start Date Coverage End Date [employer] [address] [place] [address] [id number] Gaudencio Guthrie Self - patient is the insured Medical (General) History Medical History History ICD Code hypertension coronary artery disease heart attack diabetes sepsis gout Surgical History Surgery Date(Month/Year) cholecystectomy cardiac stent placement
== END 2025-02-08 09:47 | disposition home or self-care (01) ==
PROVIDERS: PCP Family Medicine; Visit Provider Family Medicine
DX: R90.82 White matter disease, unspecified (principal); R26.89 Other abnormalities of gait and mobility
CPT/HCPCS: 70553; A9577